=== PATIENT | female | born 1955 ===

== ENCOUNTER 2021-07-26 11:10 | Day surgery (SDC) | payer OTHER ==
[~2021-07-26 11:10] MED LIST: COZAAR50 MG PO
== END 2021-07-26 20:50 | disposition home or self-care (01) ==
LOC: CIR.AMB 11:10
PROVIDERS: ATTEND Orthopaedic Surgery
DX: M75.122 Complete rotator cuff tear or rupture of left shoulder, not specified as traumatic (principal); Z20.822 Contact with and (suspected) exposure to COVID-19